=== PATIENT | male | born 1985 | race African-American/Black ===

== ENCOUNTER 2021-03-31 20:19 | Emergency (ER) | payer MEDICAID ==
[~2021-03-31] VITALS: Ht 200.7 cm; Wt 84.7 kg
[2021-03-31] MEDS ORDERED: KETOROLAC 60MG/2ML VIAL IM ONE (23:45)
[2021-04-01 01:07] VITALS: BP 118/75
== END 2021-04-01 01:37 | disposition home or self-care (01) ==
LOC: ER 20:19
DX: R07.89 Other chest pain (principal); Z98.890 Other specified postprocedural states; W22.03XA Walked into furniture, initial encounter; Y93.89 Activity, other specified; Y92.013 Bedroom of single-family (private) house as the place of occurrence of the external cause
CPT/HCPCS: 71045; 93005; 96372; 99283; J1885

== ENCOUNTER 2021-07-28 11:33 | Emergency (ER) | payer MEDICAID, OTHER ==
[~2021-07-28] VITALS: Ht 200.7 cm; Wt 87.0 kg
[2021-07-28 11:49] VITALS: BP 126/67
[2021-07-28 12:36] LABS: BASOPHILS % 0.7 % (0.0-2.0); EOSINOPHILS % 2.2 % (0.0-5.0); HEMATOCRIT. 42.1 % (42.0-52.0); HEMOGLOBIN. 14.1 g/dL (14.0-18.0); LYMPHOCYTES % 15.3 % (20.0-50.0); MEAN CORPUSCULAR HEMOGLOBIN 31.1 pg (28.0-32.0); MEAN CORPUSCULAR VOLUME 92.5 fL (80.0-94.0); MEAN PLATELET VOLUME 7.8 fl (7.4-10.4); MONOCYTES % 9.8 % (2.0-8.0); PLATELET 214 x1000/uL (130-400); RED BLOOD CELL COUNT 4.55 mill/uL (4.7-6.1); RED CELL DISTRIBUTION WIDTH 13.3 % (11.6-14.6)
[2021-07-28 12:48] LABS: CHLORIDE 105 mEq/L (98-107)
[2021-07-28] MEDS ORDERED: MAGNESIUM/ALUMINUM HYDROXIDE/SIMETHICONE 30ML UDC PO NR (15:45)
[2021-07-28] MEDS ORDERED: FAMOTIDINE 20MG TABLET PO NR (15:45)
[2021-07-28] MEDS ORDERED: ACETAMINOPHEN 325MG TABLET PO NR (16:00)
== END 2021-07-28 17:27 | disposition home or self-care (01) ==
LOC: ER 11:33
DX: R55 Syncope and collapse (principal); R73.9 Hyperglycemia, unspecified; R10.9 Unspecified abdominal pain
CPT/HCPCS: 36415; 71045; 80053; 83880; 84484; 85025; 93005; 99285

== ENCOUNTER 2023-03-15 08:06 | Emergency (ER) | payer MEDICAID ==
[~2023-03-15] VITALS: Ht 195.6 cm; Wt 91.0 kg
[2023-03-15 08:08] VITALS: BP 125/81; PULSE 72; RESP 20; TEMP 98.3; O2SAT 98
[2023-03-15] MEDS ORDERED: NAPR275T96 MT (09:33)
== END 2023-03-15 09:54 | disposition home or self-care (01) ==
LOC: ER 08:21
DX: S62.306A Unspecified fracture of fifth metacarpal bone, right hand, initial encounter for closed fracture (principal); X58.XXXA Exposure to other specified factors, initial encounter; Y93.89 Activity, other specified; Y92.89 Other specified places as the place of occurrence of the external cause; Y99.8 Other external cause status
CPT/HCPCS: 29125; 73130; 99283

== ENCOUNTER 2023-05-28 08:53 | Emergency (ER) | payer MEDICAID ==
[~2023-05-28] VITALS: Ht 190.5 cm; Wt 100.0 kg
[~2023-05-28 08:53] MED LIST: NAPR275T96 MT
[2023-05-28 08:59] VITALS: O2SAT 99
[2023-05-28 09:57] LABS: BASOPHILS % 0.8 % (0.0-2.0); EOSINOPHILS % 2.6 % (0.0-5.0); HEMATOCRIT. 41.3 % (42.0-52.0); HEMOGLOBIN. 14.2 g/dL (14.0-18.0); LYMPHOCYTES % 17.7 % (20.0-50.0); MEAN CORPUSCULAR HEMOGLOBIN 31.5 pg (28.0-32.0); MEAN CORPUSCULAR HGB CONC 34.4 g/dL (31.0-37.0); MEAN CORPUSCULAR VOLUME 91.6 fL (80.0-94.0); MEAN PLATELET VOLUME 7.4 fl (7.4-10.4); MONOCYTES % 12.7 % (2.0-8.0); NEUTROPHILS % 66.2 % (40.0-76.0); PLATELET 242 x1000/uL (130-400); RED BLOOD CELL COUNT 4.51 mill/uL (4.7-6.1); RED CELL DISTRIBUTION WIDTH 12.7 % (11.6-14.6); WHITE BLOOD COUNT 8.7 x1000/uL (4.5-11.0)
[2023-05-28 10:21] LABS: CLARITY URINE CLEAR (CLEAR); COLOR URINE YELLOW (YELLOW); GLUCOSE URINE NEGATIVE (NEGATIVE); KETONES URINE NEGATIVE (NEGATIVE); LEUKOCYTE ESTERASE URINE NEGATIVE (NEGATIVE); NITRITE URINE NEGATIVE (NEGATIVE); OCCULT BLOOD URINE NEGATIVE (NEGATIVE); PROTEIN URINE NEGATIVE (NEGATIVE)
[2023-05-28 10:32] LABS: CHLORIDE 107 mEq/L (98-107); INDEX HEMOLYSI 1 (1-3); INDEX ICTERIC 1 (1-4); INDEX LIPEMIC 1 (1-3); POTASSIUM 3.9 mEq/L (3.5-5.1); SODIUM 137 mEq/L (136-145)
[2023-05-28 10:44] LABS: ALANINE AMINOTRANSFERASE 15 IU/L (13-61); ALBUMIN 3.9 g/dL (3.4-5.0); ASPARTATE AMINOTRANSFERASE 18 IU/L (15-37); BILIRUBIN TOTAL 1.4 mg/dL (0.1-1.0); CALCIUM 8.7 mg/dL (8.5-10.1); CARBON DIOXIDE 25 mEq/L (21-32); CREATININE 0.9 mg/dL (0.6-1.3); GLUCOSE 100 mg/dL (70-105); PROTEIN TOTAL 7.6 g/dL (6.0-8.3); TROPONIN I HIGH SENSITIVITY 7 ng/L (<78); UREA NITROGEN BLOOD 10 mg/dL (7-21)
[2023-05-28] MEDS ORDERED: NAPR-681 PO (11:12)
[2023-05-28] MEDS ORDERED: CYCL5TAB MT (11:12)
[2023-05-28 11:23] VITALS: BP 115/78; PULSE 78; RESP 16; TEMP 98.2
== END 2023-05-28 11:24 | disposition home or self-care (01) ==
LOC: ER 09:02
DX: M54.6 Pain in thoracic spine (principal); M94.0 Chondrocostal junction syndrome [Tietze]
CPT/HCPCS: 36415; 71045; 80053; 81003; 84484; 85025; 93005; 99285

== ENCOUNTER → 2023-07-07 | Emergency (ER) | payer MEDICAID, OTHER ==
[~2023-07-07] MED LIST changes: +CYCL5TAB MT; +NAPR-681 PO
== END ==
LOC: ER 19:56
DX: R10.9 Unspecified abdominal pain (principal); Z53.21 Procedure and treatment not carried out due to patient leaving prior to being seen by health care provider
CPT/HCPCS: 99281